=== PATIENT | male | born 1995 | race Caucasian/White ===

== ENCOUNTER 2016-04-11 19:41 | Emergency (ER) | payer OTHER ==
[2016-04-11 20:06] VITALS: BP 137/56
[2016-04-11] MEDS ORDERED: Ibuprofen TAB* 600 MG PO ONE (20:30)
--- NOTE | 2016-04-11 20:34 | UC ---
Respiratory Complaint HPI - HPI Summary HPI Summary: cough, SOB and fever fthat has gotten worse over the past few days, fever is 102 , SOB on exertion. HX of asthma. - History of Current Complaint Chief Complaint: UCRespiratory Stated Complaint: FLU LIKE Time Seen by Provider: 04/11/16 20:13 Hx Obtained From: Patient Onset/Duration: Sudden Onset, Lasting Days Timing: Constant Severity Initially: Moderate Severity Currently: Severe Pain Intensity: 9 Pain Scale Used: 0-10 Numeric Character: Cough: Productive Aggravating Factors: Exertion, Deep Breaths, Recumbent Position Alleviating Factors: Nothing Associated Signs And Symptoms: Positive: Dyspnea, Fever, Wheezing, Nasal Congestion - Risk Factors Pulmonary Embolism Risk Factors: Negative Cardiac Risk Factors: Negative Pseudomonas Risk Factors: Negative - Allergies/Home Medications Allergies/Adverse Reactions: Allergies Allergy/AdvReac Type Severity Reaction Status Date / Time pollen Allergy Congestion Uncoded 04/11/16 20:06 Home Medications: Home Medications Ibuprofen TAB* [Advil TAB*] 400 mg PO ONCE PRN 04/11/16 [History Confirmed 04/11] Venlafaxine CAP (NF) [Effexor CAP (NF)] 120 mg PO QAM 04/11/16 [History Confirmed 04/11/16] PMH/Surg Hx/FS Hx/Imm Hx Previously Healthy: Yes - Surgical History Surgical History: None - Family History Known Family History: Positive: Respiratory Disease Negative: Cardiac Disease, Hypertension - Social History Alcohol Use: Weekly Alcohol Amount: 8 Substance Use Type: None Smoking Status (MU): Current Some Day Smoker Review of Systems Constitutional: Fever, Chills, Fatigue Skin: Negative Eyes: Negative ENT: Nasal Discharge Respiratory: Shortness Of Breath, Cough Cardiovascular: Negative Gastrointestinal: Negative Genitourinary: Negative Motor: Negative Neurovascular: Negative Musculoskeletal: Negative Neurological: Headache Psychological: Negative All Other Systems Reviewed And Are Negative: Yes Physical Exam Triage Information Reviewed: Yes Appearance: No Pain Distress, Well-Nourished, Ill-Appearing Vital Signs: Initial Vital Signs Temp 101.4 F 04/11/16 20:00 Pulse 113 04/11/16 20:00 Resp 20 04/11/16 20:00 BP 137/56 04/11/16 20:00 Pulse Ox 99 04/11/16 20:00 Vital Signs Reviewed: Yes Eye Exam: Normal Eyes: Positive: Conjunctiva Clear ENT: Positive: Hearing grossly normal, Pharyngeal erythema, Nasal congestion, TMs normal, Tonsillar swelling Dental Exam: Normal Neck exam: Normal Neck: Positive: Supple, Nontender, No Lymphadenopathy Respiratory: Positive: No accessory muscle use, Respiratory distress - mild, Crackles - lrl, Rhonchi, Wheezing, Inspiration Cardiovascular Exam: Normal Cardiovascular: Positive: RRR, No Murmur, Pulses Normal Abdominal Exam: Normal Abdomen Description: Positive: Nontender, No Organomegaly, Soft Musculoskeletal Exam: Normal Neurological Exam: Normal Psychological Exam: Normal Skin Exam: Normal UC Diagnostic Evaluation - Laboratory O2 Sat by Pulse Oximetry: 99 Respiratory Course/Dx - Course Course Of Treatment: hx obtained, exam performed, med given for fever. chest xray neg, medications prescribed. - Differential Dx/Diagnosis Differential Diagnosis/HQI/PQRI: Asthma, Bronchitis, Laryngitis, Sinusitis Provider Diagnoses: asthma. fever. bronchitis Discharge - Discharge Plan Condition: Stable Disposition: HOME Patient Education Materials: Acute Bronchitis (ED) Additional Instructions: take the medications as prescribed. Increase your fluid intake and get plenty of rest. Take the cough syrup tonight to get some sleep. Motrin or tylenol for pain and fever.
--- NOTE | 2016-04-11 20:59 | RAD ---
INDICATION: Shortness of breath cough and fever. COMPARISON: There are no prior studies available for comparison. TECHNIQUE: Dual-energy PA and lateral views of the chest were obtained. FINDINGS: The heart is within normal limits in size. Mediastinal and hilar contours appear within normal limits. The lungs are clear. No pleural effusion is present. IMPRESSION: NO EVIDENCE FOR ACTIVE CARDIOPULMONARY DISEASE.
[2016-04-11] MEDS ORDERED: Albuterol HFA INHALER* 8 gm MDI INH ONE (21:03)
[2016-04-11] MEDS ORDERED: guaiFENesin/CODIEN 100MG-10MG* 5 ML UDC PO ONE (21:07)
== END 2016-04-11 21:30 | disposition home or self-care (01) ==
LOC: UCCORT 19:41
DX: J45.909 Unspecified asthma, uncomplicated (principal); R50.9 Fever, unspecified; Z72.0 Tobacco use
CPT/HCPCS: 71020; 99203; A9270-GY; G0463

== ENCOUNTER 2016-06-11 18:00 | Emergency (ER) | payer OTHER ==
[2016-06-11 21:01] VITALS: BP 127/47
--- NOTE | 2016-06-11 21:52 | UC ---
Dental HPI - HPI Summary HPI Summary: 21 yo M with sore throat, white patches x 3 days. No fever. Otherwise healthy. Returned from [place] 05/25/16 but was not ill then, and does not think this is related to his travel. No rash, no conjunctivitis. No joint pains or muscle pains. - History of Current Complaint Chief Complaint: UCGeneralIllness Stated Complaint: ORAL COMPLAINT Time Seen by Provider: 06/11/16 21:51 Hx Obtained From: Patient Onset/Duration: Gradual Onset, Lasting Days, Still Present Severity: Moderate Pain Intensity: 6 Pain Scale Used: 0-10 Numeric Aggravating: Chewing Alleviating: Nothing - Allergies/Home Medications Allergies/Adverse Reactions: Allergies Allergy/AdvReac Type Severity Reaction Status Date / Time pollen Allergy Congestion Uncoded 06/11/16 21:01 PMH/Surg Hx/FS Hx/Imm Hx Respiratory History Of: Reports: Asthma - SPORTS INDUCED - Surgical History Surgical History: None - Family History Known Family History: Positive: Respiratory Disease - sister with asthma, Other - Alzheimer's, prostate CA, stomach cancer, liver CA, alcoholism Negative: Cardiac Disease, Hypertension - Social History Occupation: Student - [employer] Lives: Residential - several roommates Alcohol Use: Weekly Alcohol Amount: 8 Substance Use Type: Marijuana Smoking Status (MU): Current Some Day Smoker Type: Cigarettes Amount Used/How Often: 2 CIGS A DAY Have You Smoked in the Last Year: Yes Review of Systems Constitutional: Negative ENT: Sore Throat Respiratory: Negative Cardiovascular: Negative Musculoskeletal: Negative Neurological: Negative Psychological: Negative All Other Systems Reviewed And Are Negative: Yes Physical Exam Triage Information Reviewed: Yes Appearance: Well-Nourished, Ill-Appearing, Pain Distress Vital Signs: Initial Vital Signs Temp 99.1 F 06/11/16 20:53 Pulse 81 06/11/16 20:53 Resp 12 06/11/16 20:53 BP 127/47 06/11/16 20:53 Pulse Ox 100 06/11/16 20:53 elevated BP noted Vital Signs Reviewed: Yes Eyes: Positive: Conjunctiva Clear ENT: Positive: Pharyngeal erythema, TMs normal, Other: - white plaquing on tongue; red spots of hard and soft palate. Negative: Tonsillar swelling Neck: Positive: Supple Respiratory: Positive: Lungs clear, Normal breath sounds, No respiratory distress Cardiovascular: Positive: RRR, No Murmur, Pulses Normal, Brisk Capillary Refill Abdomen Description: Positive: Nontender, No Organomegaly, Soft, Distended, Guarding Bowel Sounds: Positive: Present Musculoskeletal: Positive: Strength Intact, ROM Intact Neurological: Positive: Alert, Muscle Tone Normal Psychological Exam: Normal Skin Exam: Normal Dental Complaint Course/Dx - Course Course Of Treatment: rapid A positive. sent for full culture to [facility] for possible thrush, with white plaquing on tongue - Differential Dx/Diagnosis Differential Diagnosis/Dx: Pharyngitis, Tonsillitis, Other - oral candidiasis Provider Diagnoses: strep pharyngitis Discharge - Discharge Plan Condition: Stable Disposition: HOME Prescriptions: Amoxicillin (*) [Amoxicillin 875 MG (*)] 875 mg PO BID #20 tab Patient Education Materials: Strep Throat (ED) Forms: *School Release Additional Instructions: Follow up with [facility] or return to urgent care if any new or worsening symptoms. We have sent a full throat culture to test for possible thrush also. We will contact you if you need additional medicine based on this result.
[2016-06-11] MEDS ORDERED: Amoxicillin CAP* 500 MG PO ONE (22:25)
== END 2016-06-11 22:39 | disposition home or self-care (01) ==
LOC: UCCORT 18:00
DX: J02.0 Streptococcal pharyngitis (principal); J45.990 Exercise induced bronchospasm; Z72.0 Tobacco use
CPT/HCPCS: 87070; 87651; 99212; A9270-GY; G0463